=== PATIENT | male | born 1955 | race Hispanic/Latino ===

== ENCOUNTER 2018-12-02 18:23 | Emergency (ER) | payer OTHER ==
[2018-12-02] MEDS ORDERED: KETOROLAC TROMETHAMINE 30MG/ML ONE (19:08)
[2018-12-02] MEDS ORDERED: DEXAMETHASONE SOD PHOSPHATE 10MG/ML 1ML VIAL ONE (19:08)
[2018-12-02] MEDS ORDERED: IPRATROPIUM/ALBUTEROL SULFATE 3 ML SOLUTION IH ONE (19:13)
[2018-12-02 19:41] LABS: RAPID GROUP A STREP NEGATIVE (NEGATIVE)
== END 2018-12-02 19:54 | disposition home or self-care (01) ==
LOC: EDH 18:23
DX: M10.072 Idiopathic gout, left ankle and foot (principal); R05 Cough; J45.909 Unspecified asthma, uncomplicated; G89.29 Other chronic pain
CPT/HCPCS: 87804 ×2; 87880; 94640; 96372 ×2; 99284; J1100; J1885